=== PATIENT | female | born 1945 | race Two or more races ===

== ENCOUNTER 2017-10-01 12:26 | Inpatient (IN) | payer MEDICARE, BC ==
[~2017-10-01] VITALS: Ht 165.1 cm; Wt 58.1 kg
[2017-10-01 12:50] VITALS: BP 179/86
[2017-10-01 13:36] LABS: ALBUMIN 3.8 g/dL (3.4-5.0); ALKALINE PHOSPHATASE 84 U/L (46-116); ALT (SGPT) 29 U/L (10-68); BILIRUBIN - TOTAL 0.37 mg/dL (0.2-1.3); CALC OSMOLALITY 282 mosm/kg (275-300); CALCIUM 9.7 mg/dL (8.5-10.1); CARBON DIOXIDE 31.9 mmol/L (21.0-32.0); CHLORIDE - SERUM 103 mmol/L (98-107); CREATININE - SERUM 0.8 mg/dL (0.6-1.3); GLUCOSE 104 mg/dL (74-106); POTASSIUM - SERUM 4.4 mmol/L (3.5-5.1); PROTEIN - SERUM 7.6 g/dL (6.4-8.2); SODIUM 141 mmol/L (136-145); UREA NITROGEN 18 mg/dL (7-18); eGFR NON AFRICAN AMERICAN 74 mL/min (90-120)
[2017-10-01 13:38] LABS: BASOPHILS 0.4 % (0-2); EOSINOPHILS 0.5 % (0-7); HEMATOCRIT 43.5 % (36.0-48.0); HEMOGLOBIN 14.3 g/dL (12-16); IMMATURE GRANULOCYTES 0.1 % (0-5); LYMPHOCYTES 21.1 % (15-50); MCHC 32.9 g/dL (31.0-37.0); MCV 94.4 fL (80.0-100.0); MEAN PLATELET VOLUME 11.4 fL (7.4-10.4); MONOCYTES 10.5 % (2-11); NEUTROPHILS 67.4 % (40-80); PLATELET COUNT 204 10x3/uL (130-400); RBC 4.61 10x6/uL (4.00-5.40); RDW 12.4 % (11.5-14.5); WBC 8.3 10x3/uL (4.8-10.8)
[2017-10-01 13:48] LABS: CKMB 0.8 U/L (0.0-3.6); CREATINE KINASE 101 UL (21-215); PRO BNP 1898 pg/mL (0-125); T4 THYROXIN - FREE 0.86 ng/dL (0.76-1.46); TROPONIN-I < 0.017 ng/mL (0.000-0.060)
[2017-10-01] MEDS ORDERED: CALAN120 MG PO (16:19)
[2017-10-01] MEDS ORDERED: COREG6.25 MG PO (16:20)
[2017-10-01] MEDS ORDERED: TRAZODONE HCL150 MG PO (16:20)
[2017-10-01] MEDS ORDERED: XALATAN 0.0052.5 ML EACH EYE (16:21)
[2017-10-01 16:29] VITALS: BP 129/62; BMI 22.5
[2017-10-01 16:38] VITALS: BP 143/78
[2017-10-01 19:44] VITALS: BP 116/57
[2017-10-01 23:31] VITALS: BP 114/50
[2017-10-02 04:00] VITALS: BP 128/72
[2017-10-02 04:37] LABS: HEMATOCRIT 42.1 % (36.0-48.0); MCH 31.2 pg (26.0-34.0); MCHC 33.3 g/dL (31.0-37.0); MCV 93.8 fL (80.0-100.0); MEAN PLATELET VOLUME 11.3 fL (7.4-10.4); PLATELET COUNT 188 10x3/uL (130-400); RBC 4.49 10x6/uL (4.00-5.40); RDW 12.4 % (11.5-14.5); WBC 5.7 10x3/uL (4.8-10.8)
[2017-10-02 04:44] LABS: ANION GAP 11.3 mmol/L (8-16); CALCIUM 9.7 mg/dL (8.5-10.1); CARBON DIOXIDE 30.9 mmol/L (21.0-32.0); CREATININE - SERUM 0.9 mg/dL (0.6-1.3); POTASSIUM - SERUM 4.2 mmol/L (3.5-5.1)
[2017-10-02 05:01] LABS: BASOPHILS 1 % (0-2); EOSINOPHILS 2 % (0-7); LYMPHOCYTES 58 % (15-50); MONOCYTES 10 % (2-11); NEUTROPHILS 29 % (40-80); PLATELET ESTIMATE DECREASED
[2017-10-02 08:18] VITALS: BP 133/61
[2017-10-02 11:53] VITALS: BP 128/58
[2017-10-02 13:42] VITALS: Ht 165.1 cm; Wt 58.1 kg
[2017-10-02 15:33] LABS: APTT 36.9 SECONDS (22.8-39.4); INR 1.1 (0.85-1.17); PROTIME 13.8 SECONDS (11.6-15.0)
[2017-10-02 16:00] VITALS: BP 129/57
[2017-10-02 16:00] LABS: APPEARANCE CLEAR (CLEAR); BILIRUBIN NEGATIVE (NEGATIVE); COLOR YELLOW (YELLOW); GLUCOSE NEGATIVE (NEGATIVE); KETONE NEGATIVE (NEGATIVE); NITRITE NEGATIVE (NEGATIVE); PROTEIN NEGATIVE (NEGATIVE); SPECIFIC GRAVITY 1.025 (1.005-1.020); UROBILINOGEN NORMAL (NORMAL)
[2017-10-02 16:01] LABS: WHITE CELLS - URINE 0-5 /hpf (0-5)
[2017-10-02 16:02] LABS: BACTERIA FEW /hpf (NONE SEEN); EPITHELIAL CELLS 0-5 /hpf (0-5); RED CELLS - URINE 0-5 /hpf (0-5)
[2017-10-02 21:08] VITALS: BP 128/66
[2017-10-03 01:39] VITALS: BP 111/46
[2017-10-03 06:14] VITALS: BP 115/59
[2017-10-03 08:51] VITALS: BP 124/60
[2017-10-03 12:04] VITALS: BP 110/54
[2017-10-03] MEDS ORDERED: BETAPACE 80 MG80 MG PO (15:02)
[2017-10-03] MEDS ORDERED: ELIQUIS5 MG PO (15:06)
[2017-10-03] MEDS ORDERED: XARELTO15 MG PO (15:40)
== END 2017-10-03 16:32 | disposition home or self-care (01) | DRG 308 ==
LOC: D.ER 12:26 → D.M2 15:20 → OBSVTIME 15:21 → D.M2 10-02 15:35
PROVIDERS: Family Medicine; Internal Medicine Nephrology
DX: I48.91 Unspecified atrial fibrillation (principal); I50.23 Acute on chronic systolic (congestive) heart failure; F41.9 Anxiety disorder, unspecified; G43.909 Migraine, unspecified, not intractable, without status migrainosus; I08.0 Rheumatic disorders of both mitral and aortic valves; Z87.891 Personal history of nicotine dependence